=== PATIENT | female | born 1935 | race Caucasian/White ===

== ENCOUNTER → 2021-05-27 14:39 | Outpatient (BNVA) | payer MEDICARE, OTHER, SELFPAY | PROVIDERS: Family Provider General Practice; Visit Provider Nurse Practitioner Family | DX: Z20.822 Contact with and (suspected) exposure to COVID-19 (principal) | CPT/HCPCS: 87635 ==

== ENCOUNTER 2021-05-30 08:50 | Outpatient (CLI) | payer MEDICARE, OTHER, SELFPAY ==
[2021-05-30 09:10] VITALS: BP 150/87; PULSE 61; RESP 16; TEMP 36.9; O2SAT 97; BMI 24.1
[2021-05-30 09:31] VITALS: BP 130/80; PULSE 59; RESP 16; TEMP 36.4; O2SAT 96
[2021-05-30 10:32] VITALS: BP 143/87; PULSE 86; RESP 16; TEMP 36.8; O2SAT 96
== END 2021-05-30 08:51 | disposition home or self-care (01) ==
PROVIDERS: Visit Provider Nurse Practitioner Family
DX: U07.1 COVID-19 (principal)
CPT/HCPCS: 96365

== ENCOUNTER 2022-01-13 06:52 | Emergency (ER) | payer MEDICARE, OTHER, SELFPAY ==
[2022-01-13 06:58] VITALS: BP 166/110; PULSE 88; RESP 16; TEMP 36.5; O2SAT 93; BMI 24.0
--- NOTE | 2022-01-13 07:04 | ECG_ITS ---
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 Measurements Intervals [place] Rate: 81 P: VT: QRS: 10 QRSD: 93 T: 262 QT: 399 QTc: 463 Interpretive Statements ATRIAL FIBRILLATION ST DEVIATION AND MODERATE T-WAVE ABNORMALITY, CONSIDER LATERAL ISCHEMIA [-0.1+ mV T-WAVE IN I/aVL/V5/V6] ST DEVIATION AND MODERATE T-WAVE ABNORMALITY, CONSIDER INFERIOR ISCHEMIA [-0.1+ mV T-WAVE IN II/aVF] INTERPRETATION BASED ON A DEFAULT AGE OF 40 YEARS No previous ECG available for comparison Electronically Signed On 01-13-2022 16:26:13 CDT by Nakul Galicia M.D. [id number]
--- NOTE | 2022-01-13 07:11 | ED_ITS ---
HPI - Neuro Symptoms/Deficit General: Chief Complaint: Neuro Symptoms/Deficit Stated Complaint: numbness in arms Time Seen by Provider: 01/13/22 06:56 Source: patient Mode of arrival: ambulatory Limitations: no limitations History of Present Illness: 86-year-old female presents emergency room with complaint of right upper extremity numbness tingling and pain. Began 3 days ago. She states her arm feels cold. She has had it intermittently for some time discomfort radiates from her shoulder blade all the way down to her hand involves the entire hand. She did note at 1 point that her thumb to be seem to be affected more than any other part of her arm or hand. She also specifically noted discomfort in that shoulder blade. Symptoms have been intermittent in nature. They are not accompanied by any difficulty with speech swallowing or vision. Timing confirmed by: family member History of same: Yes Severity: mild Quality: weak, numb and tingling Relieving factors: none Exacerbating factors: none Context: gradual onset On Anticoagulants: No Associated symptoms: Reports chest pain and tingling; Deny cough, diaphoresis, fevers/chills, headache(s), anorexia, malaise, nausea, seizures, short of breath, syncope, vertigo, vomiting or weakness Treatments Prior to Arrival: none Review of Systems Const: Denies: fever(s), chills, fatigue, malaise or diaphoresis ENMT: Denies: throat pain, ear or mastoid pain, nasal discharge or nasal congestion Card: Reports: chest pain; Denies: syncope Resp: Denies: dyspnea, productive cough or non-productive cough GI: Denies: abdominal pain, nausea or vomiting : Denies: flank pain, difficulty voiding, dysuria, urinary frequency or urinary urgency Skin/Breast: Denies: rash or pruritus Neuro: Denies: headache(s) or vertigo PFS ED PFSH: Medical History (Updated 01/21/22 @ 09:50 by Jamshid Wilson DO) Atrial fibrillation Hypertension Social History Smoking and tobacco status: never smoked NIH stroke score NIHSS: Level Of Consciousness - 1a: 0 Level Of Consciousness Questions - 1b: Both Correct Level Of Consciousness Commands - 1c: Both Correct Best Gaze - 2: Normal Visual Newman - 3: No Visual Loss Facial Palsy - 4: Normal Motor Arm Right - 5: No Drift Motor Arm Left - 5: No Drift Motor Leg Right - 6: No Drift Motor Leg Left - 6: No Drift Limb Ataxia - 7: Absent Sensory - 8: Normal Best Language - 9: No Aphasia Dysarthia - 10: Normal Extinction And Inattention - 11: 0 Score: Total Score: 0 Physical Exam Const: GENERAL APPEARANCE: cooperative and comfortable ORIENTATION/CONSCIOUSNESS: Yes awake, Yes oriented to person, Yes oriented to place and Yes oriented to time HENMT: COMMON NORMALS: normocephalic, atraumatic and hearing grossly normal bilaterally HEAD & SCALP: normocephalic and atraumatic Eye: COMMON NORMALS: Equal, round and reactive pupils present, EOMs intact bilaterally, conjunctivae normal and no scleral icterus CONJUNCTIVA: Yes conjunctivae normal PUPIL: Yes Equal, round and reactive pupils present Neck/C-Spine: COMMON NORMALS: no lymphadenopathy and supple Resp: COMMON NORMALS: normal respiratory effort, No retractions, No use of accessory muscles and clear to auscultation bilaterally AUSCULTATION: clear to auscultation bilaterally Cardio: COMMON NORMALS: regular rate, regular rhythm and No murmurs present (Cardio) RATE: regular rate RHYTHM: regular rhythm GI: COMMON NORMALS: Soft to palpation and No hepatosplenomegaly present AUSCULTATION: Yes normoactive bowel sounds PALPATION: Yes Soft to palpation, No Tenderness to palpation present (GI), No Guarding due to palpation present (GI) and Yes No hepatosplenomegaly present Extremity: COMMON NORMALS: normal to inspection, capillary refill normal, no clubbing, cyanosis or edema, no calf tenderness and no pedal edema Neuro: SENSORIUM/ORIENTATION: Yes oriented to person, Yes oriented to place and Yes oriented to time Skin: COMMON NORMALS: no rashes or lesions noted GENERAL SKIN EXAM: no rashes or lesions noted Course Vital Signs: Vital signs: Vital Signs Temperature 97.7 F 01/13/22 06:58 Pulse Rate 93 01/13/22 12:17 Respiratory Rate 16 01/13/22 12:17 Blood Pressure 167/114 01/13/22 09:46 Pulse Oximetry 94 01/13/22 12:17 Oxygen Delivery Me thod 01/13/22 06:58 MDM - Neuro Symptoms/Deficit Medical Decision Making Reviewed. Stroke score is 0. CTis negative. This seems more like a cervical radiculopathy than it actually looks like a acute CVA. Additionally she has blood pressure issues. We will go ahead and start her on Medrol Dosepak as well as increase her blood pressure control I discussed with her primary care doctor refer back to him for further evaluation and evaluation for advanced imaging if felt appropriate. Medical Records I reviewed the patient's medical records. Lab Data I reviewed the patient's lab results. : 01/13/22 07:35 01/13/22 07:35 Radiology Impressions Chest X-Ray 01/13/22 07:27 IMPRESSION: 1. Cardiac enlargement. 2. No acute process. 3. Interstitial fibrotic changes in the bilateral upper lung zones. Head CT 01/13/22 07:32 IMPRESSION: 1. No acute intracranial hemorrhage or edema. 2. Small vessel ischemic disease is [id number]-moqqitav. No focal area of sulcal effacement. Small subacute lacunar infarcts may not be evident with this amount of small vessel disease. Laboratory Results WBC 9.6 10^3/uL (4.0-10.0) 01/13/22 07:35 RBC 4.85 10^6/uL (4.1-5.3) 01/13/22 07:35 Hgb 15.9 g/dL (11.5-15.3) H 01/13/22 07:35 Hct 47.3 % (37.0-47.0) H 01/13/22 07:35 MCV 97.5 fl (81-99) 01/13/22 07:35 MCH 32.8 pg (28.0-34.0) 01/13/22 07:35 MCHC 33.6 g/dL (30.0-36.0) 01/13/22 07:35 RDW 13.0 % (12.1-15.1) 01/13/22 07:35 Plt Count 168 10^3/cmm (130-400) 01/13/22 07:35 MPV 10.1 fL (7.4-10.4) 01/13/22 07:35 Neut % (Auto) 79.4 % 01/13/22 07:35 Lymph % (Auto) 11.1 % 01/13/22 07:35 Wilkes % (Auto) 6.9 % 01/13/22 07:35 Eos % (Auto) 1.6 % 01/13/22 07:35 Baso % (Auto) 0.7 % 01/13/22 07:35 Neut # (Auto) 7.58 10^3/uL (1.8-7.7) 01/13/22 07:35 Lymph # (Auto) 1.1 10^3/uL (0.8-4.8) 01/13/22 07:35 Wilkes # (Auto) 0.7 10^3/uL (0.2-0.9) 01/13/22 07:35 Eos # (Auto) 0.2 10^3/uL (0.0-0.8) 01/13/22 07:35 Baso # (Auto) 0.1 10^3/uL (0.0-0.1) 01/13/22 07:35 Nucleated RBC % (auto) 0 % 01/13/22 07:35 Nucleated RBCs # 0.0 /100WBC 01/13/22 07:35 Sodium 142 mmol/L (136-145) 01/13/22 07:35 Potassium 3.9 mmol/L (3.5-5.1) 01/13/22 07:35 Chloride 106 mmol/L (98-107) 01/13/22 07:35 Carbon Dioxide 25 mmol/L (22-29) 01/13/22 07:35 Anion Gap 14.9 (5-19) 01/13/22 07:35 BUN 15 mg/dL (8-23) 01/13/22 07:35 Creatinine 1.1 mg/dL (0.5-0.9) H 01/13/22 07:35 GFR Calculation Not Reportable 01/13/22 07:35 Glucose 105 mg/dL (65-115) 01/13/22 07:35 Calculated Osmolality 295 mOsm/kg (285-295) 01/13/22 07:35 Calcium 9.3 mg/dL (8.5-10.5) 01/13/22 07:35 Total Bilirubin 1.0 mg/dL (0.15-1.2) 01/13/22 07:35 AST 18 U/L (0-32) 01/13/22 07:35 ALT 11 U/L (0-33) 01/13/22 07:35 Alkaline Phosphatase 94 U/L (35-105) 01/13/22 07:35 Troponin T Baseline 11 ng/L (0-10) H 01/13/22 07:35 Troponin T 120 Minute 10.44 ng/L (0-10) H 01/13/22 09:46 Delta Troponin T -0.56 ABS# (0-10) L 01/13/22 09:46 Total Protein 6.6 g/dL (6.6-8.7) 01/13/22 07:35 Albumin 4.3 g/dL (3.5-5.2) 01/13/22 07:35 Globulin 2.3 g/dL (1.3-4.6) 01/13/22 07:35 Discharge Plan Discharge Patient Disposition: Home Clinical Impression: Atrial fibrillation, Cervical radiculopathy, Atypical chest pain Condition: Stable Prescriptions: New Xarelto 20 mg tablet 20 mg PO DAILY Qty: 30 0RF Rx Instructions: must administer with evening meal Medrol (Balbir) 4 mg tablets,dose pack See Rx Instructions .ROUTE .COMPLEX Qty: 21 0RF Rx Instructions: orally per package directions No Action metoprolol succinate 25 mg tablet extended release 24 hr 25 mg PO BEDTIME@21 amlodipine 10 mg tablet 10 mg PO BEDTIME@21 Aspir-81 81 mg Tablet,Delayed Release (Dr/Ec) 81 mg PO BEDTIME@21 alprazolam 0.25 mg tablet 0.25 mg PO BID PRN (Reason: Anxiety) Discharge Orders: Discharge ED (Routine); Ordered 01/13/22 Ordered By: Jamshid Wilson Discharge Diet: Usual diet Discharge Activity: Limit activity as instructed Patient Instructions: Opioid Safety Activity Restrictions/Additional Instructions: manager utilization management will make arrangements for an echocardiogram and an MRI of your neck. Follow-up with Dr. Yarbrough for evaluation of the results of both the echo and the MRI. 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
--- NOTE | 2022-01-13 07:27 | XR_ITS ---
WS: [id number] Exam: XR chest 1V portable [id number] Date/Time of Exam: 01/13/2022 7:27 AM Reason For Exam: dyspnea/cough No priors. The heart is enlarged. The lungs are clear and fully expanded. Fibrous interstitial changes are seen in the bilateral upper lung zones. Scattered calcified granulomas. No pleural effusions. Bony structu res are intact. The mediastinum is normal in contour. XR/XR chest 1V portable [id number] IMPRESSION: 1. Cardiac enlargement. 2. No acute process. 3. Interstitial fibrotic changes in the bilateral upper lung zones.
--- NOTE | 2022-01-13 07:32 | CT_ITS ---
WS: [id number] CT HEAD NONCONTRAST HISTORY: Left arm numbness TECHNIQUE: Contiguous axial imaging performed through the brain in 2.5 mm imaging. Bone and soft tiss ue windows. Sagittal and coronal reformats reviewed. All CT scans at [facility] use at least one of these dose optimization techniques: automated exposure control; mA and/or kV adjustment per pa tient size (includes targeted exams where dose is matched to clinical indication); or iterative recon struction. DLP: 909.88 mGy.cm COMPARISON: None available. No acute intracranial hemorrhage, midline shift or mass effect. Mild atrophy and small vessel ischemic disease. Small vessel ischemic disease in the external capsule s and in the LEFT supraventricular white matter. No hemorrhage. No associated sulcal effacement or mi dline shift. Ventricles: Normal size with no hydrocephalus. Paranasal sinuses: As visualized are clear. Mastoid air cells: Well pneumatized. Calvarium and scalp: Skull is intact with no soft tissue edema or swelling. CT/CT head wo con* [id number] IMPRESSION: 1. No acute intracranial hemorrhage or edema. 2. Small vessel ischemic disease is tych-me-jxxiiphw. No focal area of sulcal effacement. Small subacute lacunar infarcts may not be evident with this amount of small vessel disease.
[2022-01-13 07:41] LABS: Basophils # 0.1 10^3/uL (0.0-0.1); Basophils % 0.7 %; Eosinophils # 0.2 10^3/uL (0.0-0.8); Eosinophils % 1.6 %; Hematocrit 47.3 % (37.0-47.0); Hemoglobin 15.9 g/dL (11.5-15.3); Lymphocytes # 1.1 10^3/uL (0.8-4.8); Lymphocytes % 11.1 %; Mean Corpuscular HGB Conc 33.6 g/dL (30.0-36.0); Mean Corpuscular Hemoglobin 32.8 pg (28.0-34.0); Mean Corpuscular Volume 97.5 fl (81-99); Mean Platelet Volume 10.1 fL (7.4-10.4); Monocytes # 0.7 10^3/uL (0.2-0.9); Monocytes % 6.9 %; Neutrophils # 7.58 10^3/uL (1.8-7.7); Neutrophils % 79.4 %; Nucleated Red Blood Cells % 0 %; Platelet Count 168 10^3/cmm (130-400); Red Blood Count 4.85 10^6/uL (4.1-5.3); White Blood Count 9.6 10^3/uL (4.0-10.0)
[2022-01-13 07:59] LABS: Troponin(5th) Baseline 11 ng/L (0-10)
[2022-01-13 08:03] LABS: Alanine Aminotransferase 11 U/L (0-33); Albumin Level 4.3 g/dL (3.5-5.2); Alkaline Phosphatase 94 U/L (35-105); Anion Gap 14.9 (5-19); Aspartate Amino Transferase 18 U/L (0-32); Blood Urea Nitrogen 15 mg/dL (8-23); Calcium 9.3 mg/dL (8.5-10.5); Carbon Dioxide 25 mmol/L (22-29); Chloride 106 mmol/L (98-107); Globulin 2.3 g/dL (1.3-4.6); Glucose 105 mg/dL (65-115); Osmolality Calculated 295 mOsm/kg (285-295); Potassium 3.9 mmol/L (3.5-5.1); Sodium 142 mmol/L (136-145); Total Protein 6.6 g/dL (6.6-8.7)
[2022-01-13 09:46] VITALS: BP 167/114; PULSE 75; RESP 16; O2SAT 97
[2022-01-13 10:14] LABS: Troponin 5 2HR 10.44 ng/L (0-10)
[2022-01-13 10:15] LABS: Troponin 5 2HR Delta -0.56 ABS# (0-10)
[2022-01-13 12:17] VITALS: PULSE 93; RESP 16; O2SAT 94
--- NOTE | 2022-01-22 11:08 | DCPLANNER ---
Addendum entered by Bette Diamond 03/05/22 14:06: Patient had an out patient echo and MRI scheduled - patient did attend both of the appointments. Addendum entered by Bette Diamond 01/23/22 09:09: manager validation called [facility], patients primary care physician, Dr. Yarbrough. manager validation gave clinic patients information, a follow up appointment was scheduled for Wednesday, February 09, 2022 at 10:[address] Yarbrough. manager validation called patients daughter and gave her the appointment information. Addendum entered by Bette Diamond 01/23/22 08:15: Patient has an MRI scheduled for Sunday, February 06, 2022 at 3:15. Centralized scheduling will call patient with appointment information. Patient has an out patient echo scheduled for Wednesday February 16, 2022 at 9:15. Centralized scheduling will call patients daughter with appointment information. Original Note: Patients daughter came to the ER to speak with insurance case manager about scheduling an outpatient echo and MRI. manager validation looked at patients chart, it was charted that insurance case manager would order these two test. manager validation faxed signed order to centralized scheduling, who will call patient with appointment information.
== END 2022-01-13 12:18 | disposition home or self-care (01) ==
PROVIDERS: Emergency Provider Family Medicine
DX: R07.89 Other chest pain (principal); I48.91 Unspecified atrial fibrillation; M54.12 Radiculopathy, cervical region; Z79.82 Long term (current) use of aspirin; I10 Essential (primary) hypertension
CPT/HCPCS: 36415; 70450; 71045; 80053; 84484; 85025; 93005; 99285

== ENCOUNTER 2022-02-06 14:46 | Outpatient (CLI) | payer MEDICARE, OTHER, SELFPAY ==
--- NOTE | 2022-02-06 15:17 | MR_ITS ---
WS: [id number] MRI CERVICAL SPINE NONCONTRAST HISTORY: CERVICAL RADICULOPATHY, shoulder pain down RIGHT arm. COMPARISON: None available. Technique: Multiplanar, multisequence noncontrast imaging of the cervical spine. Moderate spondylitic changes throughout the cervical spine. Increase in the cervical lordosis. C3 ant erolisthesis by 2.5 mm. C4 retrolisthesis by 2.3 mm. C7 anterolisthesis by 2.1 mm and T1 anterolisthe sis by 2.6 mm. Moderate diffuse disc space narrowing and desiccation. Hypertrophic osteophytosis thro ughout the cervical spine from C3 to C7. Very mild anterior wedging of T5. Signal within the cervical cord is normal. Visualized posterior fossa is unremarkable. Craniocervical junction, C1 and C2 relationship, odontoid process and soft tissues are normal. C2-C3: Small central disc protrusion. No stenosis. C3-C4: Diffuse annular disc bulge and osteophytic ridging. Central disc protrusion encroaches upon th e ventral thecal sac. Mild central and bilateral foraminal stenosis. C4-C5: Osteophytic ridging and annular disc bulging. Mild central stenosis. Mild foraminal narrowing due to osteophytes. Slightly greater narrowing of the LEFT foramen. C5-C6: Diffuse osteophytic ridging and annular disc bulging. Osteophytes causing mild central and nolan ateral foraminal stenosis. C6-C7: Diffuse osteophytic ridging greatest to the LEFT. Mild central and bilateral foraminal stenosi s. C7-T1: Mild foraminal narrowing due to osteophyte disease. Paraspinal soft tissue are normal. MR/MR cervical spin wo con* [id number] IMPRESSION: 1. 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 Th e most significant disc space narrowing and degeneration is at C4-5, C5-6 and C 6-7. 2. Mild central and bilateral foraminal stenosis from C3-4 to C6-7. Predomina ntly due to osteophyte disease. Largest osteophytes are on the RIGHT at C5-6 an d C6-7.
== END 2022-02-06 14:47 | disposition home or self-care (01) ==
PROVIDERS: PCP Internal Medicine; Visit Provider Family Medicine
DX: M54.12 Radiculopathy, cervical region (principal); M48.02 Spinal stenosis, cervical region; M25.78 Osteophyte, vertebrae
CPT/HCPCS: 72141

== ENCOUNTER 2022-02-16 08:49 | Outpatient (CLI) | payer MEDICARE, OTHER, SELFPAY ==
--- NOTE | 2022-02-16 09:00 | USCV_ITS ---
Charlene Barreot Age: 86 Gender: F : 1935 Exam Date: 02/16/2022 10:21 Ordering Phys: Jamshid Wilson DO Technologist: Marina Espinosa [place]am Location[place] [facility] [place] Indication: Atrial fibrillation BP: 118 / 69 HR: 73 Rhythm: Atrial fibrillation Technical Quality: Good MEASUREMENTS (Male / Female) Normal Values 2D ECHO LV Diastolic Diameter PLAX 4.4 cm 4.2 - 5.9 / 3.9 - 5.3 cm LV Systolic Diameter PLAX 3.0 cm IVS Diastolic Thickness 1.0 cm 0.6 - 1.0 / 0.6 - 0.9 cm IVS Systolic Thickness 1.4 cm LVPW Diastolic Thickness 0.9 cm 0.6 - 1.0 / 0.6 - 0.9 cm LVPW Systolic Thickness 1.8 cm LVOT Diameter 2.0 cm LV Ejection Fraction 2D Teich 61.0 % LV Ejection Fraction MOD 2C 51.8 % LV Ejection Fraction 2C AL 52.4 % LA Diameter 4.4 cm LA Width 3.3 cm LA Height 4.1 cm RA Width 2.7 cm RA Height 4.0 cm Aorta at Sinotubular Diameter 3.5 cm IVC Diameter 1.8 cm M-MODE MV E Point Septal Separation 0.8 cm DOPPLER AV Peak Velocity 102.0 cm/s LVOT Peak Velocity 82.0 cm/s AV Area Cont Eq vti 2.7 cm squared AV Area Cont Eq pk 2.5 cm squared MV Peak Velocity 67.0 cm/s MV Area PHT 4.4 cm squared Mitral E to A Ratio 2.8 MV E' Velocity 37.0 cm/s Mitral E to MV E' Ratio 6.7 Mitral E to LV E' Lateral Ratio 5.1 Mitral E to LV E' Septal Ratio 9.9 TR Peak Velocity 243.0 cm/s TR Peak Gradient 23.6 mmHg Right Atrial Pressure 3.0 mmHg Pulmonary Artery Systolic Pressu 26.6 mmHg PV Peak Velocity 42.0 cm/s RV Acceleration Time 0.3 s RV Ejection Time 0.3 s RV AcT/ET 1.0 FINDINGS Left Ventricle Normal left ventricular size, systolic function and wall thickness, with no regional wall motion abnormalities. Left ventricular ejection fraction is estimated at 55 %. Abnormal diastolic function. Right Ventricle Normal right ventricular size and systolic function. Right ventricular systolic pressure 29 mmHg. Right Atrium Mildly increased right atrial size. Left Atrium Mildly increased left atrial size. Mitral Valve Mildly thickened mitral valve. Mild bileaflet mitral valve prolapse. Mild to moderate mitral valve regurgitation. Aortic Valve Mildly thickened trileaflet aortic valve. No aortic valve stenosis. Mild aortic valve regurgitation. Tricuspid Valve Structurally normal tricuspid valve. No tricuspid valve stenosis. Mild to moderate tricuspid valve regurgitation. Pulmonic Valve Structurally normal pulmonic valve. No pulmonary valve stenosis. Trace pulmonary valve regurgitation. Pericardium No pericardial effusion. Aorta Normal size aortic root and proximal ascending aorta. IVC Normal IVC dimension with >50% respiratory change of the inferior vena cava. CONCLUSIONS 1. Normal left ventricular size, systolic function and wall thickness, with no regional wall motion abnormalities. Left ventricular ejection fraction is estimated at 55 %. Abnormal diastolic function. 2. Mild biatrial enlargement. 3. Mild to moderate mitral and tricuspid valve regurgitation. 4. Mild aortic valve regurgitation. 5. Pulmonary artery pressure estimated at 29 mmHg. 6. No prior similar studies to compare. Anahi Brewer MD (Electronically Signed) Final Date: 19 February 2022 15:16 S
== END 2022-02-16 08:50 | disposition home or self-care (01) ==
LOC: RAD 08:49
PROVIDERS: PCP Internal Medicine; Visit Provider Family Medicine
DX: I48.91 Unspecified atrial fibrillation (principal); I08.1 Rheumatic disorders of both mitral and tricuspid valves
CPT/HCPCS: 93306

== ENCOUNTER 2022-03-03 18:43 | Emergency (ER) | payer MEDICARE, OTHER, SELFPAY ==
[2022-03-03 18:44] VITALS: BP 156/86; PULSE 83; RESP 17; TEMP 36.8; O2SAT 97; BMI 24.1
--- NOTE | 2022-03-03 18:51 | CTR_ITS ---
PROCEDURE INFORMATION: Exam: CT Head Without Contrast Exam date and time: 03/03/2022 7:28 PM Age: 86 years old Clinical indication: Dizziness and weakness, extremity; Left TECHNIQUE: Imaging protocol: Computed tomography of the head without contrast. Radiation optimization: All CT scans at this facility use at least one of these dose optimization techniques: automated exposure control; mA and/or kV adjustment per patient size (includes targeted exams where dose is matched to clinical indication); or iterative reconstruction. COMPARISON: CT head wo con* [id number] 01/13/2022 7:45 AM RADIATION DOSE METRICS: Total DLP (mGy-cm): 937.68 FINDINGS: Brain: There is diffuse cerebral atrophy and chronic microvascular white matter disease. There is no acute intracranial hemorrhage. Cerebral ventricles: There is no significant ventricular dilation. The basal cisterns are unremarkable. Paranasal sinuses: The paranasal sinuses are clear. Mastoid air cells: The mastoid air cells are clear. Bones/joints: The calvarium is intact. Soft tissues: The visible extracranial soft tissues are unremarkable. CT/CT head wo con* [id number] IMPRESSION: No acute intracranial abnormality.
--- NOTE | 2022-03-03 19:01 | ECG_ITS ---
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 Measurements Intervals [place] Rate: 70 P: [place]: QRS: 5 QRSD: 94 T: 264 QT: 447 QTc: 484 Interpretive Statements ATRIAL FIBRILLATION ST DEVIATION AND MODERATE T-WAVE ABNORMALITY, CONSIDER ANTEROLATERAL ISCHEMIA [-0.1+ mV T-WAVE IN V3-V6] ST DEVIATION AND MODERATE T-WAVE ABNORMALITY, CONSIDER INFERIOR ISCHEMIA [-0.1+ mV T-WAVE IN II/aVF] Compared to ECG 01/13/2022 07:04:22 No significant changes Electronically Signed On 03-04-2022 5:50:49 CDT by Anahi Brewer M.D. [id number]
--- NOTE | 2022-03-03 19:17 | W.ED.DIZZY ---
HPI - Dizziness General: Chief Complaint: Dizziness Stated Complaint: DIZZY UPON STANDING Time Seen by Provider: 03/03/22 18:53 History of Present Illness: HPI Narrative: 86-year-old female comes in tonight with an episode of dizziness when she went to stand up out of the chair. Patient reports that she was unable to stand due to the dizziness. Patient reports some improvement of symptoms since arriving to the ER. Review of the record noted that patient had had some recent diagnosis of atrial fibs which at this time is controlled with a rate of 70. Orthostatic blood pressures done by EMS were negative. Patient is on amlodipine, metoprolol, and rivaroxaban. NIH stroke scale is 1 due to some labial flattening on the left side of face which thoracic exam was normal. Associated symptoms: Denies chest pain, nausea or vomiting Review of Systems General: Reports: 10 or more systems reviewed and unremarkable except in HPI and below Card: Denies: chest pain Resp: Denies: dyspnea GI: Denies: nausea or vomiting Musc: Denies: neck pain Neuro: Reports: dizziness PFSH ED PFSH: Medical History (Updated 03/03/22 @ 21:52 by OMAR Toro) Atrial fibrillation Hypertension Social History Smoking and tobacco status: never smoked Physical Exam Const: COMMON NORMALS: alert HENMT: COMMON NORMALS: Normal external nose present NOSE: Normal external nose present MOUTH: Normal oral and palatal mucosa present Eye: GENERAL EYE: appearance normal, both eyes and all related structures Neck/C-Spine: COMMON NORMALS: full ROM Resp: COMMON NORMALS: normal respiratory effort and clear to auscultation bilaterally AUSCULTATION: clear to auscultation bilaterally Cardio: COMMON NORMALS: regular rate, S1 normal heart sound present and S2 normal heart sound present RATE: regular rate HEART SOUNDS: S1 normal heart sound present and S2 normal heart sound present GI: COMMON NORMALS: non-tender Extremity: COMMON NORMALS: no pedal edema Neuro: SENSORIUM/ORIENTATION: Yes alert Skin: COMMON NORMALS: turgor normal GENERAL SKIN EXAM: turgor normal Course Vital Signs: Vital signs: Vital Signs Temperature 98.2 F 03/03/22 18:44 Pulse Rate 80 03/03/22 21:30 Respiratory Rate 19 H 03/03/22 21:30 Blood Pressure 143/89 03/03/22 21:30 Pulse Oximetry 98 03/03/22 21:30 Oxygen Delivery Me thod 03/03/22 18:44 MDM - Dizziness Medical Decision Making 86-year-old female comes in today with dizziness when raising up out of the chair today to the point that she was not able to stand. On exam patient has some mild weakness in all extremities seems worse on the left than the right. Patient does also have some facial asymmetry although family thinks that this is her normal. Vital signs were unremarkable. Patient did report some mild headache. Patient has a history of atrial fib and hypertension. Patient did have some medication adjustment recently with changes in her metoprolol from 25 to 50 mg and the addition of rivaroxaban. NIH stroke scale was 1 on initial evaluation due to the symmetry of the face. Differential diagnosis includes but not limited to benign positional vertigo, adverse drug effect, stroke syndrome, electrolyte imbalance. CT of the head was unremarkable. CBC and CMP noted creatinine 1.0 but otherwise unremarkable. Troponin was less than 6. EKG shows atrial fibs with controlled rate of 70. Due to frequent return to the ER we went ahead and did a CTA of the head and neck was unremarkable. We will put in the case management for follow-up regarding the dizziness with neurology. Patient and family both reported understanding. I also evaluated patient's right shoulder due to some pain but it did not show any significant abnormalities. Lab Data : 03/03/22 19:40 03/03/22 19:[address] 03/03/22 18:51 IMPRESSION: No acute intracranial abnormality. Head/Neck CTA 03/03/22 21:00 IMPRESSION: No arterial stenosis, occlusion or aneurysm. IMPRESSION: No arterial stenosis, occlusion or dissection. REFERENCES: NASCET CRITERIA. The degree of stenosis in the cervical segment of the internal carotid artery is based on NASCET criteria. Normal is no stenosis. Mild is less than 50% stenosis. Moderate is 50-69% stenosis. Severe is 70% to 99% stenosis. Total occlusion is no detectable patent lumen. Shoulder X-Ray 03/03/22 21:56 IMPRESSION: No acute findings. Laboratory Results WBC 9.8 10^3/uL (4.0-10.0) 03/03/22 19:40 RBC 4.76 10^6/uL (4.1-5.3) 03/03/22 19:40 Hgb 15.8 g/dL (11.5-15.3) H 03/03/22 19:40 Hct 46.5 % (37.0-47.0) 03/03/22 19:40 MCV 97.7 fl (81-99) 03/03/22 19:40 MCH 33.2 pg (28.0-34.0) 03/03/22 19:40 MCHC 34.0 g/dL (30.0-36.0) 03/03/22 19:40 RDW 12.9 % (12.1-15.1) 03/03/22 19:40 Plt Count 164 10^3/cmm (130-400) 03/03/22 19:40 MPV 10.0 fL (7.4-10.4) 03/03/22 19:40 Neut % (Auto) 73.4 % 03/03/22 19:40 Lymph % (Auto) 11.5 % 03/03/22 19:40 [place] % (Auto) 9.9 % 03/03/22 19:40 Eos % (Auto) 4.0 % 03/03/22 19:40 Baso % (Auto) 0.7 % 03/03/22 19:40 Neut # (Auto) 7.22 10^3/uL (1.8-7.7) 03/03/22 19:40 Lymph # (Auto) 1.1 10^3/uL (0.8-4.8) 03/03/22 19:40 [place] # (Auto) 1.0 10^3/uL (0.2-0.9) H 03/03/22 19:40 Eos # (Auto) 0.4 10^3/uL (0.0-0.8) 03/03/22 19:40 Baso # (Auto) 0.1 10^3/uL (0.0-0.1) 03/03/22 19:40 Nucleated RBC % (auto) 0 % 03/03/22 19:40 Nucleated RBCs # 0.0 /100WBC 03/03/22 19:40 Sodium 139 mmol/L (136-145) 10/18/22 19:40 Potassium 4.0 mmol/L (3.5-5.1) 03/03/22 19:40 Chloride 104 mmol/L (98-107) 03/03/22 19:40 Carbon Dioxide 24 mmol/L (22-29) 03/03/22 19:40 Anion Gap 15.0 (5-19) 03/03/22 19:40 BUN 18 mg/dL (8-23) 03/03/22 19:40 Creatinine 1.0 mg/dL (0.5-0.9) H 03/03/22 19:40 GFR Calculation Not Reportable 03/03/22:40 Glucose 103 mg/dL (65-115) 03/03/22 19:40 Calculated Osmolality 290 mOsm/kg (285-295) 03/03/22:40 Calcium 9.6 mg/dL (8.5-10.5) 03/03/22 19:40 Total Bilirubin 0.8 mg/dL (0.15-1.2) 03/03/22 19:40 AST 21 U/L (0-32) 03/03/22 19:40 ALT 15 U/L (0-33) 03/03/22 19:40 Alkaline Phosphatase 97 U/L (35-105) 03/03/22 19:40 Troponin T Gen 5 ng/L 8 ng/L (0-10) 03/03/22 19:40 Total Protein 7.0 g/dL (6.6-8.7) 03/03/22 19:40 Albumin 3.9 g/dL (3.5-5.2) 03/03/22 19:40 Globulin 3.1 g/dL (1.3-4.6) 03/03/22 19:40 Urine Color Light yellow (Yellow) 03/03/22 19:00 Urine Appearance Clear (CLEAR) 03/03/22 19:00 Urine pH 5 (5-7) 03/03/22 19:00 Ur Specific [place] 1.005 (1.005-1.030) 03/03/22 19:00 Urine Protein Neg (Negative) 03/03/22 19:00 Urine Glucose (UA) Norm (Normal) 03/03/22 19:00 Urine Ketones Negative (Negative) 03/03/22 19:00 Urine Blood 2+ (Negative) H 03/03/22 19:00 Urine Nitrate Negative (Negative) 03/03/22 19:00 Urine Bilirubin Neg (Negative) 03/03/22 19:00 Urine Urobilinogen Norm mg/dL (Negative) 03/03/22 19:00 Ur Leukocyte Esterase Negative (Negative) 03/03/22 19:00 Urine RBC 0-4 /hpf (0-2) H 03/03/22 19:00 Urine WBC 0-4 /hpf (0-5) H 03/03/22 19:00 Ur Squamous Epith Cells 0-4 /hpf (0-5) H 03/03/22 19:00 Amorphous Sediment Not Reportable 03/03/22 19:00 Urine Bacteria Trace /hpf (NONE) 03/03/22 19:00 Discharge Plan Discharge Patient Disposition: Home Clinical Impression: Benign paroxysmal positional vertigo Qualifiers: Laterality: unspecified laterality Qualified Code(s): H81.10 - Benign paroxysmal vertigo, unspecified ear Condition: Stable Prescriptions: No Action metoprolol succinate 25 mg tablet extended release 24 hr 50 mg PO BEDTIME@21 amlodipine 10 mg tablet 10 mg PO BEDTIME@21 aspirin [Aspir-81] 81 mg Tablet,Delayed Release (Dr/Ec) 81 mg PO BEDTIME@21 alprazolam 0.25 mg tablet 0.25 mg PO BID PRN (Reason: Anxiety) Xarelto 20 mg tablet 20 mg PO DAILY Qty: 30 0RF Rx Instructions: must administer with evening meal Discharge Orders: Discharge ED (Routine); Ordered 03/03/22 Ordered By: Riki Elliott Referrals: Tadeo Yarbrough DO [Primary Care Provider] - Discharge Diet: Usual diet Discharge Activity: Increase activity as tolerated Patient Instructions: Dizziness (ED), Opioid Safety Activity Restrictions/Additional Instructions: Home and rest. Activity as tolerated. Use a cane or walker to help steady yourself. Change positions slowly. Keep your appointment with jacker tomorrow. Case management will contact you regarding a follow-up appoint with neurology. Return to ER for new concerns such as severe headache, high fever greater than 100.4, shortness of breath, or chest pain. Coding Level of Care Code ED Conventions Reservationist for Chinag Fwd Exam Comprehensive
[2022-03-03 19:18] VITALS: BP 140/92; PULSE 88; RESP 20; O2SAT 95
[2022-03-03 19:24] VITALS: BP 139/92; BP 140/92; BP 151/83; PULSE 68; PULSE 74; PULSE 89
[2022-03-03 19:32] LABS: Add Urine Culture? No; Add Urine Microscopic? YES; Bacteria Urine TRACE /hpf; Bilirubin Urine Neg (Negative); Blood Urine 2+ (Negative); Glucose Urine UA Norm (Normal); Ketones Urine Negative (Negative); Leukocyte Esterase Urine Negative (Negative); Nitrate Urine Negative (Negative); Protein Urine Neg (Negative); RBC Urine 0-4 /hpf (0-2); Specific Gravity, Urine 1.005 (1.005-1.030); Squamous Epithelial Cell Urine 0-4 /hpf (0-5); Urine Appearance Clear (CLEAR); Urine Color Light Yellow (Yellow); Urobilinogen Urine Norm (Negative); WBC Urine 0-4 /hpf (0-5); pH Urine 5 (5-7)
[2022-03-03 19:51] LABS: Basophils # 0.1 10^3/uL (0.0-0.1); Basophils % 0.7 %; Eosinophils # 0.4 10^3/uL (0.0-0.8); Hematocrit 46.5 % (37.0-47.0); Hemoglobin 15.8 g/dL (11.5-15.3); Lymphocytes # 1.1 10^3/uL (0.8-4.8); Lymphocytes % 11.5 %; Mean Corpuscular Hemoglobin 33.2 pg (28.0-34.0); Mean Corpuscular Volume 97.7 fl (81-99); Monocytes % 9.9 %; Neutrophils # 7.22 10^3/uL (1.8-7.7); Neutrophils % 73.4 %; Nucleated Red Blood Cells % 0 %; Platelet Count 164 10^3/cmm (130-400); Red Blood Count 4.76 10^6/uL (4.1-5.3); Red Cell Distribution Width 12.9 % (12.1-15.1); White Blood Count 9.8 10^3/uL (4.0-10.0)
[2022-03-03 20:00] VITALS: BP 128/83; PULSE 70; RESP 25; O2SAT 96
[2022-03-03 20:14] LABS: Alanine Aminotransferase 15 U/L (0-33); Albumin Level 3.9 g/dL (3.5-5.2); Alkaline Phosphatase 97 U/L (35-105); Aspartate Amino Transferase 21 U/L (0-32); Blood Urea Nitrogen 18 mg/dL (8-23); Calcium 9.6 mg/dL (8.5-10.5); Carbon Dioxide 24 mmol/L (22-29); Chloride 104 mmol/L (98-107); Globulin 3.1 g/dL (1.3-4.6); Glucose 103 mg/dL (65-115); Osmolality Calculated 290 mOsm/kg (285-295); Sodium 139 mmol/L (136-145); Total Bilirubin 0.8 mg/dL (0.15-1.2)
[2022-03-03 20:15] LABS: Troponin T (5th) Once 8 ng/L (0-10)
--- NOTE | 2022-03-03 21:00 | CTR_ITS ---
PROCEDURE INFORMATION: Exam: CTA Head With Contrast, Arteriography Exam date and time: 03/03/2022 9:08 PM Age: 86 years old Clinical indication: Dizziness and giddiness and syncope and collapse and weakness; Patient HX: Dizziness with near syncope and left upper ext weakness; Additional info: Dizziness upon standing. Near syncope. TECHNIQUE: Imaging protocol: Computed tomographic angiography of the head with contrast. Exam focused on the arteries. 3D rendering (Not supervised by radiologist): MIP and/or 3D reconstructed images were created by the technologist. Radiation optimization: All CT scans at this facility use at least one of these dose optimization techniques: automated exposure control; mA and/or kV adjustment per patient size (includes targeted exams where dose is matched to clinical indication); or iterative reconstruction. Contrast material: OMNI 350; Contrast volume: 100 ml; Contrast route: INTRAVENOUS (IV); COMPARISON: CT head wo con* [id number] 03/03/2022 7:28 PM RADIATION DOSE METRICS: Total DLP (mGy-cm): 320.92 FINDINGS: ANTERIOR CIRCULATION: Right internal carotid artery: There is mild atherosclerotic disease in the cavernous portion of the right internal carotid artery without significant stenosis. Right middle cerebral artery: No occlusion or significant stenosis. No aneurysm. Right anterior cerebral artery: No occlusion or significant stenosis. No aneurysm. Left internal carotid artery: There is mild atherosclerotic disease in the cavernous portion of the left internal carotid artery without significant stenosis. Left middle cerebral artery: No occlusion or significant stenosis. No aneurysm. Left anterior cerebral artery: No occlusion or significant stenosis. No aneurysm. POSTERIOR CIRCULATION: Right vertebral artery: No occlusion or significant stenosis. No aneurysm. Left vertebral artery: No occlusion or significant stenosis. No aneurysm. Basilar artery: No occlusion or significant stenosis. No aneurysm. Right posterior cerebral artery: No occlusion or significant stenosis. No aneurysm. Left posterior cerebral artery: No occlusion or significant stenosis. No aneurysm. Brain: No definite mass, mass effect, or midline shift. Cerebral ventricles: No ventriculomegaly. Mastoid air cells: The mastoid air cells are clear. Bones/joints: Unremarkable. No acute fracture. Soft tissues: Unremarkable. PROCEDURE INFORMATION: Exam: CTA Neck With Contrast Exam date and time: 03/03/2022 9:08 PM Age: 86 years old Clinical indication: Dizziness and giddiness and syncope and collapse and weakness; Patient HX: Dizziness with near syncope and left upper ext weakness; Additional info: Dizziness upon standing. Near syncope. TECHNIQUE: Imaging protocol: Computed tomographic angiography of the neck with contrast. 3D rendering (Not supervised by radiologist): MIP and/or 3D reconstructed images were created by the technologist. Radiation optimization: All CT scans at this facility use at least one of these dose optimization techniques: automated exposure control; mA and/or kV adjustment per patient size (includes targeted exams where dose is matched to clinical indication); or iterative reconstruction. Contrast material: OMNI 350; Contrast volume: 100 ml; Contrast route: INTRAVENOUS (IV); COMPARISON: MR cervical spin wo con* [id number] 02/06/2022 3:53 PM RADIATION DOSE METRICS: Total DLP (mGy-cm): 320.92 FINDINGS: Right common carotid artery: No stenosis. No dissection or occlusion. Right internal carotid artery: There is mild atherosclerotic disease at the origin of the right internal carotid artery without stenosis. Right external carotid artery: No occlusion or stenosis of the origin. Left common carotid artery: No stenosis. No dissection or occlusion. Left internal carotid artery: There is mild atherosclerotic disease at the origin of the left internal carotid artery without stenosis. Left external carotid artery: No occlusion or stenosis of the origin. Right vertebral artery: No stenosis. No dissection or occlusion. Left vertebral artery: No stenosis. No dissection or occlusion. Soft tissues: Soft tissues in the neck and thoracic inlet are unremarkable. Bones/joints: There is mild degenerative disc disease in the cervical spine. Lungs: There is mild bilateral apical subpleural scarring. CT/CT angio headneck* [id number] IMPRESSION: No arterial stenosis, occlusion or aneurysm. IMPRESSION: No arterial stenosis, occlusion or dissection. REFERENCES: NASCET CRITERIA. The degree of stenosis in the cervical segment of the internal carotid artery is based on NASCET criteria. Normal is no stenosis. Mild is less than 50% stenosis. Moderate is 50-69% stenosis. Severe is 70% to 99% stenosis. Total occlusion is no detectable patent lumen.
[2022-03-03] MEDS: iohexol 350 mg/mL 100 mL Btl IV (21:12)
[2022-03-03 21:30] VITALS: BP 143/89; PULSE 80; RESP 19; O2SAT 98
--- NOTE | 2022-03-03 21:42 | PC.NURSE ---
ambulated pt approx 60 ft. gait steady. no assistance required.
--- NOTE | 2022-03-03 21:56 | XRR_ITS ---
PROCEDURE INFORMATION: Exam: XR Right Shoulder Exam date and time: 03/03/2022 10:02 PM Age: 86 years old Clinical indication: Pain; Shoulder; Right TECHNIQUE: Imaging protocol: Radiologic exam of the Right shoulder. Views: 2 or more views. COMPARISON: (CTA 1.000 CE, NECK, CTA HEAD/NECK) 03/03/2022 9:08 PM FINDINGS: Bones/joints: Alignment is normal. No acute fracture. Soft tissues: Visible soft tissues are unremarkable. XR/XR shoulder RT min 2V* [id number] IMPRESSION: No acute findings.
--- NOTE | 2022-03-04 09:10 | DCPLANNER ---
Addendum entered by Bette Diamond 05/06/22 11:47: Patient had a follow up appointment scheduled with neurology - patient did attend appointment. Addendum entered by Bette Diamond 04/09/22 08:18: Patient has a follow up appointment scheduled for Wednesday, April 15, 2022 at 11:[address] Wiggins at neurology. Clinic will call patient with appointment information. Original Note: certified wellness program manager had message to schedule a follow up appointment for patient with neurology. certified wellness program manager sent patients information to the front office staff at neurology. Patients information will be printed and reviewed. Clinic will call patient with appointment information.
== END 2022-03-03 22:26 | disposition home or self-care (01) ==
PROVIDERS: Emergency Provider Nurse Practitioner Family; PCP Internal Medicine
DX: H81.10 Benign paroxysmal vertigo, unspecified ear (principal); Z79.82 Long term (current) use of aspirin; I10 Essential (primary) hypertension
CPT/HCPCS: 70450; 70496; 70498; 73030; 80053; 81001; 84484; 85025; 93005; 99285; Q9967

== ENCOUNTER → 2022-03-04 13:07 | Outpatient (BNVA) | payer MEDICARE, OTHER, SELFPAY | PROVIDERS: PCP Internal Medicine; Visit Provider Internal Medicine Cardiovascular Disease | DX: I48.91 Unspecified atrial fibrillation (principal); R42 Dizziness and giddiness; I10 Essential (primary) hypertension | CPT/HCPCS: 99204 ==

== ENCOUNTER 2022-03-17 14:59 | Outpatient (CLI) | payer MEDICARE, OTHER, SELFPAY ==
--- NOTE | 2022-03-17 15:50 | CT_ITS ---
WS: [id number] CT CHEST WITH INTRAVENOUS CONTRAST HISTORY: RT ARM WEAKNESS TECHNIQUE: Contiguous 5 mm axial imaging performed on the thorax. Coronal and sagittal reformats are submitted. All CT scans at [facility] use at least one of these dose optimization techniques: automated exposure control; mA and/or kV adjustment per patient size (includes targeted exams where dose is matched to clinical indication); or iterative reconstruction. CONTRAST: Omnipaque 350; 95 mL IV. DLP: 595.98 mGy.cm COMPARISON: Prior CT 03/03/2022 Lungs and central airway: Biapical pleural thickening and scarring slightly asymmetric to the RIGHT. Benign granuloma at the RIGHT lung base. Mild pulmonary hyperexpansion with peripheral interstitial t hickening. Pleura: Normal. No pleural effusion. Heart and pericardium: Severe biatrial enlargement. Mediastinum and jasmina: No mediastinum or hilar adenopathy. Prominent cisterna chyli. Vessels: Atherosclerosis aorta. No aneurysm. Atherosclerotic plaque and mild ectasia. No dissection. Normal enhancement of the pulmonary artery. LEFT vertebral artery arises from aortic arch. Chest wall and lower neck: No soft tissue masses. Upper abdomen: Prior cholecystectomy. Mildly prominent common bile duct at 10 mm. Pancreatic duct is 2 mm. No adrenal mass. Osseous structures: Moderate increase in thoracic kyphosis. Degenerative scoliosis. CT/CT chest w con* [id number] IMPRESSION: 1. No pneumonia or pulmonary mass. 2. Biapical pleural thickening and scarring. Probably fibrotic. 3. Severe biatrial enlargement. 4. No mediastinal or hilar adenopathy. 5. Moderate atherosclerosis aorta. 6. Prior cholecystectomy.
[2022-03-17] MEDS: iohexol 350 mg/mL 100 mL Btl IV (16:02)
== END 2022-03-17 15:00 | disposition home or self-care (01) ==
LOC: RAD 15:00
PROVIDERS: PCP Internal Medicine; Visit Provider Internal Medicine
DX: R29.898 Other symptoms and signs involving the musculoskeletal system (principal); I51.7 Cardiomegaly; I25.10 Atherosclerotic heart disease of native coronary artery without angina pectoris
CPT/HCPCS: 71260

== ENCOUNTER 2022-03-20 16:49 | Emergency (ER) | payer MEDICARE, OTHER, SELFPAY ==
[2022-03-20 16:50] VITALS: BP 145/78; PULSE 76; RESP 16; TEMP 36.9; O2SAT 95; BMI 24.1
--- NOTE | 2022-03-20 16:56 | XRR_ITS ---
PROCEDURE INFORMATION: Exam: XR Chest Exam date and time: 03/20/2022 5:21 PM Age: 86 years old Clinical indication: Tachypnea; Additional info: Chest pain TECHNIQUE: Imaging protocol: Radiologic exam of the chest. Views: 1 view. COMPARISON: CT chest w con* [id number] 03/17/2022 3:56 PM FINDINGS: Lungs: Stable COPD . Pleural spaces: Unremarkable. No pleural effusion. No pneumothorax. Heart/Mediastinum: Grossly stable mild to moderate cardiomegaly. Vasculature: Calcification of the thoracic aorta and/or great vessels consistent with atherosclerotic vessel disease. Bones/joints: Unremarkable. Organs: Stable cholecystectomy. XR/XR chest 1V portable [id number] IMPRESSION: 1. Grossly stable mild to moderate cardiomegaly. 2. Stable COPD .
--- NOTE | 2022-03-20 17:08 | ECG_ITS ---
[facility] Test Date: 2022-03-20 Pat Name: Charlene Barreto Department: Room: Gender: Female Head Custodian: : 1935 Requested By: Jamshid Monge Order Number: [id number] Joss MD: Anahi Brewer M.D. Measurements Intervals [place] Rate: 74 P: [place]: QRS: 16 QRSD: 97 T: 241 QT: 404 QTc: 449 Interpretive Statements ATRIAL FIBRILLATION INCOMPLETE RIGHT BUNDLE BRANCH BLOCK ST DEVIATION AND MODERATE T-WAVE ABNORMALITY, CONSIDER LATERAL ISCHEMIA ST DEVIATION AND MODERATE T-WAVE ABNORMALITY, CONSIDER INFERIOR ISCHEMIA Compared to ECG 03/03/2022 19:01:29 Incomplete right bundle-branch block now present T-wave abnormality still present Possible ischemia still present Electronically Signed On 03-20-2022 17:57:50 CDT by Anahi Brewer M.D. [id number]
--- NOTE | 2022-03-20 17:21 | W.ED.CHESTPA ---
HPI - Chest Pain General: Chief Complaint: Chest Pain Stated Complaint: chest pain Time Seen by Provider: 03/20/22 16:56 Source: patient Mode of arrival: ambulatory History of Present Illness: 86-year-old female presents to the emergency room with complaints of palpitations and a thumping in her chest. She had an episode that lasted a few minutes around 2 this afternoon and then several other various intermittent episodes that just lasted seconds. No associated shortness of breath or diaphoresis no radiation of pain. We seen her in late December she had a similar type presentation look like she was having atrial fibrillation she had an extended time where she was on a Holter monitor reviewing those. She has intermittent atrial fibrillation that she is symptomatic at times. She has no known coronary artery disease. Echo done last month showed a normal ejection fraction with good wall motion, Mild aortic insufficiency. CT of the head and CTA of the neck done previously were unremarkable. Her symptoms are completely resolved at this point. Pertinent past history: other (Atrial fibrillation) Onset (ago): hour(s) Timing of current episode: episodic Prior episodes: Yes Onset: during rest Pain location: left chest Pain radiation: none Severity: mild Quality: other ( Thumping sensation ) Relieving factors: nothing Exacerbating factors: nothing Associated symptoms: Reports palpitations; Deny abdominal pain, diaphoresis, dyspnea, fever(s), leg edema, nausea, sense of impending doom, syncope or vomiting Treatment prior to arrival: none Review of Systems Const: Denies: fever(s), chills, fatigue, malaise or diaphoresis ENMT: Denies: throat pain, ear or mastoid pain, nasal discharge or nasal congestion Card: Reports: chest pain, palpitations and irregular heart rhythm; Denies: syncope Resp: Denies: dyspnea, productive cough, non-productive cough or wheezing GI: Denies: abdominal pain, nausea or vomiting : Denies: flank pain, difficulty voiding, dysuria, urinary frequency or urinary urgency Skin/Breast: Denies: rash or pruritus PFSH ED PFSH: Medical History Atrial fibrillation Hypertension Surgical History S/P appendectomy S/P cholecystectomy Family History Father Myocardial infarction Brother CAD (coronary artery disease) Hx of CABG S/P coronary artery stent placement Sister S/P coronary artery stent placement Mother Hypertension Other Cancer Social History Smoking and tobacco status: never smoked Physical Exam Const: COMMON NORMALS: no acute distress GENERAL APPEARANCE: cooperative and comfortable ORIENTATION/CONSCIOUSNESS: Yes awake, Yes oriented to person, Yes oriented to place and Yes oriented to time HENMT: COMMON NORMALS: normocephalic and atraumatic HEAD & SCALP: normocephalic and atraumatic Resp: COMMON NORMALS: normal respiratory effort, No retractions, No use of accessory muscles and clear to auscultation bilaterally AUSCULTATION: clear to auscultation bilaterally Cardio: COMMON NORMALS: regular rate, regular rhythm and No murmurs present (Cardio) RATE: regular rate RHYTHM: regular rhythm GI: COMMON NORMALS: Soft to palpation and No hepatosplenomegaly present AUSCULTATION: Yes normoactive bowel sounds PALPATION: Yes Soft to palpation, No Tenderness to palpation present (GI), No Guarding due to palpation present (GI) and Yes No hepatosplenomegaly present Extremity: COMMON NORMALS: normal to inspection, capillary refill normal, no clubbing, cyanosis or edema, no calf tenderness and no pedal edema Neuro: SENSORIUM/ORIENTATION: Yes oriented to person, Yes oriented to place and Yes oriented to time Skin: COMMON NORMALS: no rashes or lesions noted GENERAL SKIN EXAM: no rashes or lesions noted Course Vital Signs: Vital signs: Vital Signs Temperature 98.4 F 03/20/22 16:50 Pulse Rate 71 03/20/22 17:39 Respiratory Rate 16 03/20/22 16:50 Blood Pressure 154/87 03/20/22 17:39 Pulse Oximetry 96 03/20/22 17:39 Oxygen Delivery Me thod 03/20/22 17:39 MDM - Chest Pain Medical Decision Making Care signed out to Dr. Dunn at change of shift. See final notes for diagnosis and disposition. Lab Data : 03/20/22 17:30 03/20/22 17:30 Radiology Impressions Chest X-Ray 03/20/22 16:56 IMPRESSION: 1. Grossly stable mild to moderate cardiomegaly. 2. Stable COPD . Laboratory Results WBC 8.6 10^3/uL (4.0-10.0) 03/20/22 17: RBC 4.75 10^6/uL (4.1-5.3) 03/20/22 17:30 Hgb 15.6 g/dL (11.5-15.3) H 03/20/22 17:30 Hct 46.5 % (37.0-47.0) 03/20/22 17: MCV 97.9 fl (81-99) 03/20/22 17: MCH 32.8 pg (28.0-34.0) 03/20/22 17: MCHC 33.5 g/dL (30.0-36.0) 03/20/22 17: RDW 13.0 % (12.1-15.1) 03/20/22 17: Plt Count 174 10^3/cmm (130-400) 03/20/22 17: MPV 10.5 fL (7.4-10.4) H 03/20/22 17:30 Neut % (Auto) 59.9 % 03/20/22 17:30 Lymph % (Auto) 20.5 % 03/20/22 17: [place] % (Auto) 10.8 % 03/20/22 17:30 Eos % (Auto) 7.7 % 03/20/22 17: Baso % (Auto) 0.9 % 03/20/22 17: Neut # (Auto) 5.16 10^3/uL (1.8-7.7) 03/20/22 17: Lymph # (Auto) 1.8 10^3/uL (0.8-4.8) 03/20/22 17:30 [place] # (Auto) 0.9 10^3/uL (0.2-0.9) 03/20/22 17: Eos # (Auto) 0.7 10^3/uL (0.0-0.8) 03/20/22 17: Baso # (Auto) 0.1 10^3/uL (0.0-0.1) 03/20/22 17: Nucleated RBC % (auto) 0 % 03/20/22 17: Nucleated RBCs # 0.0 /100WBC 03/20/22 17:30 PT 15.40 SECONDS (12.1-14.9) H 03/20/22 17:30 INR 1.19 (0.8-1.2) 03/20/22 17:30 Discharge Plan Discharge Condition: Stable Prescriptions: No Action amlodipine 10 mg tablet 10 mg PO BEDTIME@21 sertraline 50 mg tablet 50 mg PO DAILY Xarelto 15 mg tablet 15 mg PO DAILY Qty: 30 6RF Rx Instructions: must administer with evening meal metoprolol tartrate 25 mg tablet 25 mg PO BID Qty: 60 3RF aspirin [Aspir-81] 81 mg Tablet,Delayed Release (Dr/Ec) 81 mg PO BEDTIME@21 alprazolam 0.25 mg tablet 0.25 mg PO BID PRN (Reason: Anxiety) Referrals: Tadeo Yarbrough DO [Primary Care Provider] - Coding Level of Care Code ED Lead Medical Technologist for g Fwd Exam Detailed
--- NOTE | 2022-03-20 17:38 | PC.NURSE ---
Patient is on continuous CM and SP02 at bedside.
[2022-03-20 17:39] VITALS: BP 154/87; PULSE 71; O2SAT 96
[2022-03-20 17:53] LABS: Basophils # 0.1 10^3/uL (0.0-0.1); Basophils % 0.9 %; Eosinophils # 0.7 10^3/uL (0.0-0.8); Eosinophils % 7.7 %; Hematocrit 46.5 % (37.0-47.0); Hemoglobin 15.6 g/dL (11.5-15.3); Lymphocytes # 1.8 10^3/uL (0.8-4.8); Lymphocytes % 20.5 %; Mean Corpuscular HGB Conc 33.5 g/dL (30.0-36.0); Mean Corpuscular Hemoglobin 32.8 pg (28.0-34.0); Mean Corpuscular Volume 97.9 fl (81-99); Mean Platelet Volume 10.5 fL (7.4-10.4); Monocytes # 0.9 10^3/uL (0.2-0.9); Monocytes % 10.8 %; Neutrophils # 5.16 10^3/uL (1.8-7.7); Neutrophils % 59.9 %; Nucleated Red Blood Cells % 0 %; Platelet Count 174 10^3/cmm (130-400); Red Blood Count 4.75 10^6/uL (4.1-5.3); White Blood Count 8.6 10^3/uL (4.0-10.0)
[2022-03-20 18:04] LABS: INR 1.19 (0.8-1.2)
[2022-03-20 18:08] LABS: Troponin(5th) Baseline 9 ng/L (0-10)
[2022-03-20 18:11] LABS: Alanine Aminotransferase 52 U/L (0-33); Albumin Level 4.6 g/dL (3.5-5.2); Alkaline Phosphatase 109 U/L (35-105); Anion Gap 15.6 (5-19); Aspartate Amino Transferase 46 U/L (0-32); Blood Urea Nitrogen 16 mg/dL (8-23); Calcium 9.7 mg/dL (8.5-10.5); Carbon Dioxide 24 mmol/L (22-29); Chloride 106 mmol/L (98-107); Globulin 2.5 g/dL (1.3-4.6); Glucose 101 mg/dL (65-115); Osmolality Calculated 293 mOsm/kg (285-295); Potassium 4.6 mmol/L (3.5-5.1); Sodium 141 mmol/L (136-145); Total Bilirubin 0.6 mg/dL (0.15-1.2); Total Protein 7.1 g/dL (6.6-8.7)
[2022-03-20] MEDS: aspirin 81 mg Chew Tablet 324 MG PO (18:11)
[2022-03-20 18:34] VITALS: BP 132/76; PULSE 70; RESP 19; TEMP 36.9; O2SAT 97
--- NOTE | 2022-03-20 19:08 | ECG_ITS ---
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 Measurements Intervals [place] Rate: 66 P: MD: QRS: 4 QRSD: 94 T: -60 QT: 435 QTc: 459 Interpretive Statements ATRIAL FIBRILLATION INCOMPLETE RIGHT BUNDLE BRANCH BLOCK ST DEVIATION AND MODERATE T-WAVE ABNORMALITY, CONSIDER LATERAL ISCHEMIA DEVIATION AND MODERATE T-WAVE ABNORMALITY, CONSIDER INFERIOR ISCHEMIA Compared to ECG 03/20/2022 17:12:07 No significant changes Electronically Signed On 03-21-2022 10:57:00 CDT by Anahi Brewer M.D. [id number]
[2022-03-20 19:30] VITALS: BP 150/81; PULSE 67; RESP 18; O2SAT 98
[2022-03-20 19:43] LABS: Troponin 5 2HR 9.33 ng/L (0-10)
[2022-03-20 19:52] LABS: Troponin 5 2HR Delta 0.33 ABS# (0-10)
[2022-03-20 20:11] LABS: Add Urine Culture? No; Add Urine Microscopic? YES; Bilirubin Urine Neg (Negative); Blood Urine 2+ (Negative); Glucose Urine UA Norm (Normal); Ketones Urine Negative (Negative); Leukocyte Esterase Urine Negative (Negative); Nitrate Urine Negative (Negative); Protein Urine Neg (Negative); RBC Urine 0-4 /hpf (0-2); Squamous Epithelial Cell Urine 0-4 /hpf (0-5); Urine Appearance Clear (CLEAR); Urine Color Yellow (Yellow); Urobilinogen Urine Norm (Negative); WBC Urine 0-4 /hpf (0-5); pH Urine 5 (5-7)
[2022-03-20 20:47] VITALS: BP 138/77; PULSE 69; RESP 19; O2SAT 95
--- NOTE | 2022-03-23 13:44 | DCPLANNER ---
Addendum entered by Bette Diamond 05/06/22 15:21: Patient had a follow up appointment scheduled with heart care - patient did attend appointment. Addendum entered by Bette Diamond 03/26/22 16:50: Patient has a follow up appointment scheduled for Wednesday, March 27, 2022 at 9:30 with Xochitl Wilson. Clinic will contact patient with appointment information. Original Note: detail manager had message to schedule a follow up appointment for patient with cardiology. detail manager sent patients information to the front office staff at heart [facility]. Patients information will be printed and reviewed. Clinic will call patient with appointment information.
== END 2022-03-20 20:50 | disposition home or self-care (01) ==
PROVIDERS: Family Medicine; Emergency Provider Emergency Medicine; PCP Internal Medicine
DX: R07.9 Chest pain, unspecified (principal); Z79.82 Long term (current) use of aspirin; I10 Essential (primary) hypertension
CPT/HCPCS: 71045; 80053; 81001; 84484; 85025; 85610; 93005; 99285

== ENCOUNTER → 2022-03-27 09:26 | Outpatient (BNVA) | payer MEDICARE, OTHER, SELFPAY | PROVIDERS: PCP Internal Medicine; Visit Provider Nurse Practitioner Family | DX: I48.91 Unspecified atrial fibrillation (principal); I10 Essential (primary) hypertension | CPT/HCPCS: 99213; 99214 ==

== ENCOUNTER → 2022-04-03 09:29 | Outpatient (BNVA) | payer MEDICARE, OTHER, SELFPAY | PROVIDERS: PCP Internal Medicine; Visit Provider Nurse Practitioner Family | DX: I48.91 Unspecified atrial fibrillation (principal); Z79.01 Long term (current) use of anticoagulants | CPT/HCPCS: 93005; 99213 ==

== ENCOUNTER → 2022-04-15 11:21 | Outpatient (BNVA) | payer MEDICARE, OTHER, SELFPAY | PROVIDERS: PCP Internal Medicine; Referring Provider Nurse Practitioner Family; Visit Provider Specialist | DX: R42 Dizziness and giddiness (principal); I48.91 Unspecified atrial fibrillation; I10 Essential (primary) hypertension; I51.7 Cardiomegaly; Z79.01 Long term (current) use of anticoagulants | CPT/HCPCS: 99205 ==

== ENCOUNTER 2022-05-15 11:25 | Outpatient (CLI) | payer MEDICARE, OTHER, SELFPAY ==
[2022-05-15] MEDS: iohexol 350 mg/mL 500 mL Btl (per mL) IV (11:37)
--- NOTE | 2022-05-15 12:00 | CT_ITS ---
WS: [id number] CTA HEAD AND NECK TECHNIQUE: Contrast enhanced CTA of the head and neck with coronal and sagittal reformatted images an d maximum intensity projection (MIP) images. NASCET criteria utilized. CLINICAL INFORMATION: R42 - Dizziness and giddiness COMPARISON: CTA March 03, 2022 DLP: 916.[address] scans at [facility] use at least one of these dose optimization techniques: automated e xposure control; mA and/or kV adjustment per patient size (includes targeted exams where dose is matc hed to clinical indication); or iterative reconstruction. FINDINGS: Advanced small vessel changes. Mild to moderate parenchymal volume loss. Intracranial vascu lar calcification. Paranasal sinuses are well aerated. Mastoid air cells are well aerated. Normal posterior nasopharynx. RIGHT: RIGHT common carotid artery is patent. No significant RIGHT ICA stenosis. Mild atheromatous pl aque RIGHT carotid bulb extending into the ICA. Tortuous cervical RIGHT ICA is patent to the skull ba se. LEFT: LEFT common carotid artery is patent. Mild calcification at the origin. Minimal calcified ather omatous disease LEFT carotid bulb. Tortuous LEFT cervical ICA remains patent to the skull base. No si gnificant LEFT ICA stenosis. RIGHT vertebral artery is patent. Mild calcification at the origin. Smaller but patent LEFT vertebral artery. Vertebral arteries are patent to the basilar junction. Basilar artery is patent. Normal vasc ularity to the MAJOR GENERAL territory bilaterally. No evidence of flow-limiting stenosis or aneurysm. Both ICAs are patent at the skull base. Cavernous carotid calcification. Normal vascularity to the AC A and MCA territories bilaterally. No evidence of proximal flow limiting stenosis or aneurysm. Mild c avernous carotid calcification. Fibrotic changes in the lung apices. Innominate artery is patent. Proximal subclavian artery and axillary arteries are patent. Mild calcif ication at the LEFT subclavian artery origin which remains patent. LEFT subclavian and axillary arter ies are patent. Normal posterior nasopharynx. Normal parapharyngeal fat. Straightening of the normal cervical lordosi s. Moderate spondylitic changes. Disc space narrowing throughout the cervical spine. Slight anterolis thesis C3 on C4. Disc space narrowing worse at C3-C4, C4-C5, C5-C6 and C6-C7. INTRACRANIAL CTA: CT/CT angio headneck* [id number] IMPRESSION: No remarkable changes since March 03, 2022 1. Markedly tortuous cervical ICAs bilaterally. No significant ICA stenosis. B [facility] ICAs are patent to the skull base. 2. Mild atheromatous plaque both carotid bulbs extending into the ICAs. 3. Both vertebral arteries are patent. RIGHT dominant vertebral artery. 4. Unremarkable intracranial CTA. No flow-limiting stenosis or aneurysm. 5. Proximal subclavian arteries appear patent bilaterally. 6. Moderate spondylitic changes cervical spine. 7. Advanced small vessel changes with moderate parenchymal volume loss.
== END 2022-05-15 11:26 | disposition home or self-care (01) ==
LOC: RAD 11:28
PROVIDERS: PCP Internal Medicine; Visit Provider Specialist
DX: R42 Dizziness and giddiness (principal); I10 Essential (primary) hypertension; I48.91 Unspecified atrial fibrillation; I65.23 Occlusion and stenosis of bilateral carotid arteries
CPT/HCPCS: 70496; 70498; Q9967

== ENCOUNTER → 2022-07-13 13:28 | Outpatient (BNVA) | payer MEDICARE, OTHER, SELFPAY | PROVIDERS: PCP Internal Medicine; Visit Provider Nurse Practitioner Family | DX: I48.91 Unspecified atrial fibrillation (principal); I10 Essential (primary) hypertension; Z79.01 Long term (current) use of anticoagulants; Z79.82 Long term (current) use of aspirin | CPT/HCPCS: 99214 ==

== ENCOUNTER → 2023-01-11 15:15 | Outpatient (BNVA) | payer MEDICARE, OTHER, SELFPAY | PROVIDERS: PCP Internal Medicine; Visit Provider Internal Medicine Cardiovascular Disease | DX: R42 Dizziness and giddiness (principal); I48.91 Unspecified atrial fibrillation; I10 Essential (primary) hypertension; Z79.82 Long term (current) use of aspirin | CPT/HCPCS: 99214 ==

== ENCOUNTER 2024-03-01 20:49 | Emergency (ER) | payer MEDICARE, OTHER, SELFPAY ==
[2024-03-01 21:19] VITALS: BP 181/112; PULSE 74; RESP 16; TEMP 36.5; O2SAT 96; BMI 24.1
--- NOTE | 2024-03-01 21:33 | XRR_ITS ---
PROCEDURE INFORMATION: Exam: XR Chest Exam date and time: 03/01/2024 9:42 PM Age: 88 years old Clinical indication: Other: HTN; Additional info: Hypertension TECHNIQUE: Imaging protocol: Radiologic exam of the chest. Views: 1 view. COMPARISON: CR XR chest 1V portable [id number] 03/20/2022 5:21 PM FINDINGS: Lungs: No consolidation. Biapical pleural-parenchymal scarring and prominent reticulation, similar to prior CT chest, consistent with mild fibrotic change. Pleural spaces: No large pleural effusion. No pneumothorax. Heart/Mediastinum: Unchanged cardiomegaly. Bones/joints: Osseous demineralization. No visible acute fracture. XR/XR chest 1V portable [id number] IMPRESSION: 1. No acute findings. 2. Unchanged cardiomegaly.
[2024-03-01 21:47] LABS: Basophils % 0.5 %; Eosinophils # 0.2 10^3/uL (0.0-0.8); Eosinophils % 2.6 %; Hematocrit 46.7 % (36-47); Lymphocytes # 1.5 10^3/uL (0.8-4.8); Lymphocytes % 19.4 %; Mean Corpuscular HGB Conc 33.6 g/dL (30-55); Mean Corpuscular Hemoglobin 32.5 pg (27-33); Mean Corpuscular Volume 96.7 fl (85-98); Mean Platelet Volume 9.9 fL (7.4-10.4); Monocytes # 0.7 10^3/uL (0.2-0.9); Monocytes % 8.5 %; Neutrophils # 5.22 10^3/uL (1.8-7.7); Neutrophils % 68.6 %; Nucleated Red Blood Cells % 0 %; Platelet Count 145 10^3/cmm (157-399); Red Blood Count 4.83 10^6/uL (3.85-5.65); Red Cell Distribution Width 13.2 % (12.1-15.1); White Blood Count 7.62 10^3/uL (3.29-11.43)
--- NOTE | 2024-03-01 21:47 | W.ED.GENADLT ---
HPI - General Adult General: Chief complaint: General Medical Stated complaint: high BP dizzy Time Seen by Provider: 03/01/24 21:30 History of Present Illness: 88-year-old female with history of hypertension and anxiety who presents emergency room with hypertension. She says she is having some dizziness and headaches today. She checked her blood pressure was elevated. She took a Xanax and an extra losartan without any relief. No chest pain. No altered mental status. No focal motor deficits. No nausea or vomiting. No fevers. Related Data Home Medications Medication Instructions Recorded Confirmed alprazolam 0.25 mg tablet 0.25 mg PO BID PRN Anxiety 01/13/22 07/13/22 aspirin 81 mg tablet,delayed 81 mg PO BEDTIME@21 01/13/22 07/13/22 release sertraline 50 mg tablet 50 mg PO DAILY 03/04/22 07/13/22 Previous Rx's Medication Instructions Recorded diltiazem HCl 120 mg 120 mg PO DAILY #90 caps 03/23/23 capsule,extended release 24 hr losartan 25 mg tablet 25 mg PO DAILY #90 tabs 01/03/24 clonidine HCl 0.1 mg tablet 0.1 mg PO Q8H PRN hypertensive 03/01/24 emergency #20 tabs Allergies Allergy/AdvReac Type Severity Reaction Status Date / Time prednisone Allergy Unknown unknown Uncoded 07/13/22 13:54 metoprolol AdvReac Severe ADR-Dizzine Uncoded 07/13/22 14:15 ss Review of Systems Narrative: Constitutional symptoms: Negative except as documented in HPI. Skin symptoms: Negative except as documented in HPI. Eye symptoms: Negative except as documented in HPI. ENMT symptoms: Negative except as documented in HPI. Respiratory symptoms: Negative except as documented in HPI. Cardiovascular symptoms: Negative except as documented in HPI. Gastrointestinal symptoms: Negative except as documented in HPI. Genitourinary symptoms: Negative except as documented in HPI. Musculoskeletal symptoms: Negative except as documented in HPI. Neurologic symptoms: Negative except as documented in HPI. Psychiatric symptoms: Negative except as documented in HPI. Endocrine symptoms: Negative except as documented in HPI. [facility] ED PFSH: Medical History Atrial fibrillation Hypertension Surgical History S/P appendectomy S/P cholecystectomy Family History Father Myocardial infarction Brother CAD (coronary artery disease) Hx of CABG S/P coronary artery stent placement Sister S/P coronary artery stent placement Mother Hypertension Other Cancer Social History Smoking and tobacco/nicotine status: never used tobacco/nicotine Physical Exam Narrative: EXAM NARRATIVE: General: Alert, no acute distress. Skin: Warm, dry. Head: Normocephalic, atraumatic. Neck: Supple, trachea midline. Eye: Extraocular movements are intact. Ears, nose, mouth and throat: mucosa moist. Cardiovascular: irregularly irregular, Normal peripheral perfusion. Respiratory: Lungs are clear to auscultation, respirations are non-labored, breath sounds are equal, Symmetrical chest wall expansion. Gastrointestinal: Soft, Nontender, Non distended Musculoskeletal: Normal ROM, no deformity. Neurological: Alert and oriented, No focal neurological deficit observed. Psychiatric: Cooperative, appropriate mood & affect. Course Vital Signs: Vital signs: Vital Signs Temperature 97.7 F 03/01/24 21:19 Pulse Rate 68 03/01/24 23:46 Respiratory Rate 16 03/01/24 21:19 Blood Pressure 175/99 03/02/24 00:01 Pulse Oximetry 97 03/01/24 23:46 Oxygen Delivery Me thod Room Air 03/01/24 22:30 MDM - General Adult Medical Decision Making Medical decision making: Differential diagnosis including but not limited to and based on the above HPI, review of systems and physical exam: Patient presents with hypertension: Essential hypertension. Stroke. acute coronary syndrome. kidney failure. congestive heart failure. anxiety EKG: Time 2154. Rate 71. Atrial fibrillation with controlled rate, No ST-T changes, no ectopy, This was reviewed and interpreted by myself the ER physician at 2159 Repeat EKG: Time 2347. Rate 71 atrial fibrillation with controlled rate, No ST-T changes, no ectopy, This was reviewed and interpreted by myself the ER physician at 2350. No changes from EKG done previously in the emergency room today. Chest x-ray: Stable cardiomegaly. No acute process. No infiltrate. No pneumothorax. This was reviewed and interpreted by myself the ER physician. Lab Review: Laboratory results were reviewed and interpreted by myself the emergency room physician. No leukocytosis. No anemia. Platelets are mildly low at 145. Creatinine is at her baseline at 1.1. Urinalysis is negative for infection I reviewed the patient's medical record. Reexamination: Patient remained stable. No increased work of breathing. No altered mental status. No focal motor deficits. We had a long discussion about blood pressure parameters and anxiety. We discussed limited use of clonidine and talking to her primary about bringing her pressures down slowly if need be. Assessment and plan: Hypertension ?Clonidine in the emergency room - Discharged home - Discussed findings and plan with patient. Answered any questions. - All laboratory values were reviewed and interpreted personally by myself, the ER physician - All imaging was reviewed and interpreted personally by myself, the ER physician. - Evaluation and treatment of this problem were appropriate in the emergency setting Lab Data 03/01/24 21:42 03/01/24 21:42 Radiology Impressions Chest X-Ray 03/01/24 21:33 IMPRESSION: 1. No acute findings. 2. Unchanged cardiomegaly. Laboratory Results WBC 7.62 10^3/uL (3.29-11.43) 03/01/24 21:42 RBC 4.83 10^6/uL (3.85-5.65) 03/01/24 21:42 Hgb 15.70 g/dL (11.27-16.99) 03/01/24 21:42 Hct 46.7 % (36-47) 03/01/24 21:42 MCV 96.7 fl (85-98) 03/01/24 21:42 MCH 32.5 pg (27-33) 03/01/24 21:42 MCHC 33.6 g/dL (30-55) 03/01/24 21:42 RDW 13.2 % (12.1-15.1) 03/01/24 21:42 Plt Count 145 10^3/cmm (157-399) L 03/01/24 21:42 MPV 9.9 fL (7.4-10.4) 03/01/24 21:42 Neut % (Auto) 68.6 % 03/01/24 21:42 Lymph % (Auto) 19.4 % 03/01/24 21:42 Ritchie % (Auto) 8.5 % 03/01/24 21:42 Eos % (Auto) 2.6 % 03/01/24 21:42 Baso % (Auto) 0.5 % 03/01/24 21:42 Neut # (Auto) 5.22 10^3/uL (1.8-7.7) 03/01/24 21:42 Lymph # (Auto) 1.5 10^3/uL (0.8-4.8) 03/01/24 21:42 Ritchie # (Auto) 0.7 10^3/uL (0.2-0.9) 03/01/24 21:42 Eos # (Auto) 0.2 10^3/uL (0.0-0.8) 03/01/24 21:42 Baso # (Auto) 0.0 10^3/uL (0.0-0.1) 03/01/24 21:42 Nucleated RBC % (auto) 0 % 03/01/24 21:42 Nucleated RBCs # 0.0 /100WBC 03/01/24 21:42 Sodium 140 mmol/L (136-145) 03/01/24 21:42 Potassium 4.6 mmol/L (3.5-5.1) 03/01/24 21:42 Chloride 108 mmol/L (98-107) H 03/01/24 21:42 Carbon Dioxide 23 mmol/L (22-29) 03/01/24 21:42 Anion Gap 13.6 (5-19) 03/01/24 21:42 BUN 19 mg/dL (8-23) 03/01/24 21:42 Creatinine 1.1 mg/dL (0.5-0.9) H 03/01/24 21:42 GFR Calculation Not Reportable 03/01/24 21:42 Glucose 112 mg/dL (65-115) 03/01/24 21:42 Calculated Osmolality 293 mOsm/kg (285-295) 03/01/24 21:42 Calcium 8.9 mg/dL (8.5-10.5) 03/01/24 21:42 Total Bilirubin 0.6 mg/dL (0.15-1.2) 03/01/24 21:42 AST 18 U/L (0-32) 03/01/24 21:42 ALT 10 U/L (0-33) 03/01/24 21:42 Alkaline Phosphatase 129 U/L (35-105) H 03/01/24 21:42 Troponin T Baseline 14 ng/L (0-10) H 03/01/24 21:42 Troponin T 120 Minute 14.07 ng/L (0-10) H 03/01/24 23:24 Delta Troponin T 0.07 ABS# (0-10) 03/01/24 23:24 Total Protein 6.3 g/dL (6.6-8.7) L 03/01/24 21:42 Albumin 4.3 g/dL (3.5-5.2) 03/01/24 21:42 Globulin 2.0 g/dL (1.3-4.6) 03/01/24 21:42 Urine Color Yellow (Yellow) 03/01/24 21:42 Urine Appearance Clear (CLEAR) 03/01/24 21:42 Urine pH 6.0 (5-7) 03/01/24 21:42 Ur Specific [place] 1.005 (1.005-1.030) 03/01/24 21:42 Urine Protein Negative (Negative) 03/01/24 21:42 Urine Glucose (UA) Negative (Normal) 03/01/24 21:42 Urine Ketones Negative (Negative) 03/01/24 21:42 Urine Blood 1+ (Negative) A 03/01/24 21: Urine Nitrate Negative (Negative) 03/01/24 21: Urine Bilirubin Negative (Negative) 03/01/24 21:42 Urine Urobilinogen 1.0 mg/dL (Negative) 03/01/24 21:42 Ur Leukocyte Esterase 1+ (Negative) A 03/01/24 21: Urine RBC 0-2 /hpf (0-2) 03/01/24 21:42 Urine WBC 0-5 /hpf (0-5) 03/01/24 21:42 Ur Squamous Epith Cells 0-5 /hpf (0-5) 03/01/24 21:42 Amorphous Sediment Not Reportable 03/01/24 21: Urine Bacteria None seen /hpf (NONE) 03/01/24 21:42 Hyaline Casts 0-4 /lpf H 03/01/24 21:42 All radiology interpretation(s) finalized by discharge Discharge Plan Discharge Patient Disposition: Home Clinical Impression: Hypertension Condition: Stable Prescriptions: New clonidine HCl 0.1 mg tablet 0.1 mg PO Q8H PRN (Reason: hypertensive emergency) Qty: 20 0RF Rx Instructions: For Systolic >185 diastolic >100 No Action sertraline 50 mg tablet 50 mg PO DAILY diltiazem HCl 120 mg capsule,extended release 24hr 120 mg PO DAILY Qty: 90 3RF losartan 25 mg tablet 25 mg PO DAILY Qty: 90 0RF aspirin [Aspir-81] 81 mg Tablet,Delayed Release (Dr/Ec) 81 mg PO BEDTIME@21 alprazolam 0.25 mg tablet 0.25 mg PO BID PRN (Reason: Anxiety) Discharge Orders: Discharge ED (Routine); Ordered 03/01/24 Ordered By: Ruba Dejesus Referrals: Tadeo Yarbrough DO [Primary Care Provider] - Patient Instructions: Hypertension (ED) Activity Restrictions/Additional Instructions: Thank you for choosing [facility] for your healthcare needs today. Please realize this is an emergency room and that we are providing you with a medical screening exam and this may not be complete and all inclusive of all the testing and or work up that you may need to determine your ailment or severity of your illness. You have been screened and evaluated and felt safe for discharge. Health conditions do change or evolve sometimes and as such it is important that you follow up with your Primary Doctor to be re checked, 3-5 days is a general good time frame for follow up. You are always welcome to return to the ED for re assessment if your symptoms are worsening or you have new concerns Coding Level of Care Code ED Retail Manager In Training for Barbara Vang
--- NOTE | 2024-03-01 21:55 | ECG_ITS ---
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 Measurements Intervals [place] Rate: 71 P: 0 MN: 0 QRS: -5 QRSD: 93 T: -15 QT: 434 QTc: 472 Interpretive Statements ATRIAL FIBRILLATION INCOMPLETE RIGHT BUNDLE BRANCH BLOCK [90+ ms QRS DURATION, TERMINAL R IN V1/V2, 40+ ms S IN I/aVL/V4/V5/V6] SEPTAL MYOCARDIAL INFARCTION , PROBABLY OLD [40+ ms Q WAVE IN V1/V2] Compared to ECG 03/20/2022 19:20:10 Myocardial infarct finding now present T-wave abnormality no longer present Possible ischemia no longer present Electronically Signed On 03-02-2024 00:57:28 CDT by Luis Enrique Abernathy M.D. [id number]
[2024-03-01 22:08] LABS: Bilirubin Urine Negative (Negative); Blood Urine 1+ (Negative); Glucose Urine UA Negative (Normal); Ketones Urine Negative (Negative); Leukocyte Esterase Urine 1+ (Negative); Nitrate Urine Negative (Negative); Protein Urine Negative (Negative); Specific Gravity, Urine 1.005 (1.005-1.030); Troponin(5th) Baseline 14 ng/L (0-10); Urine Appearance Clear (CLEAR); Urine Color Yellow (Yellow)
[2024-03-01 22:09] LABS: Alanine Aminotransferase 10 U/L (0-33); Albumin Level 4.3 g/dL (3.5-5.2); Alkaline Phosphatase 129 U/L (35-105); Anion Gap 13.6 (5-19); Aspartate Amino Transferase 18 U/L (0-32); Calcium 8.9 mg/dL (8.5-10.5); Carbon Dioxide 23 mmol/L (22-29); Chloride 108 mmol/L (98-107); Creatinine Clr Calc Pharmacy 30.0807; Glucose 112 mg/dL (65-115); Potassium 4.6 mmol/L (3.5-5.1); Sodium 140 mmol/L (136-145); Total Bilirubin 0.6 mg/dL (0.15-1.2); Total Protein 6.3 g/dL (6.6-8.7)
[2024-03-01 22:10] VITALS: BP 153/84; PULSE 78; O2SAT 94
[2024-03-01 22:13] LABS: Bacteria Urine None Seen /hpf; Hyaline Casts Urine 0-4 /lpf; RBC Urine 0-2 /hpf (0-2); Squamous Epithelial Cell Urine 0-5 /hpf (0-5); WBC Urine 0-5 /hpf (0-5)
[2024-03-01 22:15] VITALS: BP 160/85; PULSE 67; O2SAT 97
[2024-03-01 22:30] VITALS: BP 148/82; PULSE 67; O2SAT 97
[2024-03-01 22:34] LABS: Blood Urea Nitrogen 19 mg/dL (8-23); Osmolality Calculated 293 mOsm/kg (285-295)
[2024-03-01] MEDS: acetaminophen 500 mg Tablet 1000 MG PO (22:53)
[2024-03-01 23:27] VITALS: BP 186/131
[2024-03-01] MEDS: cloNIDine 0.1 mg Tablet PO (23:27)
[2024-03-01 23:46] VITALS: BP 183/95; PULSE 68; O2SAT 97
--- NOTE | 2024-03-01 23:47 | ECG_ITS ---
[employer] [facility] Test Date: 2024-03-01 Pat Name: Charlene Barreto Department: Room: Gender: Female Manager Grocery: : 1935 Requested By: Ruba Monge Order Number: [id number] Coreas MD: Luis Enrique Abernathy M.D. Measurements Intervals [place] Rate: 71 P: 0 NE: 0 QRS: -8 QRSD: 98 T: -32 QT: 414 QTc: 450 Interpretive Statements ATRIAL FIBRILLATION WITH ABERRANT CONDUCTION OR VENTRICULAR PREMATURE COMPLEXES INCOMPLETE RIGHT BUNDLE BRANCH BLOCK [90+ ms QRS DURATION, TERMINAL R IN V1/V2, 40+ ms S IN I/aVL/V4/V5/V6] SEPTAL MYOCARDIAL INFARCTION , PROBABLY OLD [40+ ms Q WAVE IN V1/V2] Compared to ECG 03/01/2024 21:55:23 Ventricular premature complex(es) now present Aberrant conduction of supraventricular beat(s) now present Myocardial infarct finding still present Electronically Signed On 03-02-2024 00:58:23 CDT by Luis Enrique Abernathy M.D. [id number]
[2024-03-01 23:49] LABS: Troponin 5 2HR 14.07 ng/L (0-10); Troponin 5 2HR Delta 0.07 ABS# (0-10)
[2024-03-02 00:01] VITALS: BP 175/99
[2024-03-02 00:49] VITALS: BP 159/95; PULSE 71; O2SAT 95
== END 2024-03-02 00:21 | disposition home or self-care (01) ==
PROVIDERS: Emergency Provider Emergency Medicine; PCP Internal Medicine
DX: I10 Essential (primary) hypertension (principal); Z79.82 Long term (current) use of aspirin; I48.91 Unspecified atrial fibrillation
CPT/HCPCS: 71045; 80053; 81001; 84484; 85025; 93005; 99285